=== PATIENT | male | born 1975 | race Caucasian/White ===

== ENCOUNTER 2020-04-14 21:04 | Emergency (ER) | payer BC ==
[~2020-04-14] VITALS: Ht 177.8 cm; Wt 79.4 kg
[2020-04-14 21:41] LABS: BASO % 0.7 % (0.0-1.0); EOS # 0.1 10*3/uL (0.0-0.4); EOS % 2.2 % (1.0-4.0); HEMATOCRIT 45.4 % (42.0-52.0); LYMPH # 1.5 10*3/uL (1.3-4.4); LYMPH % 26.5 % (27.0-41.0); MEAN CELL VOLUME 95.4 fl (80.0-94.0); MEAN CORPUSCULAR HGB 32.4 pg (27.0-31.0); MEAN CORPUSCULAR HGB CONC 33.9 g/dl (33.0-37.0); MEAN PLATELET VOLUME 10.2 fl (9.6-12.3); MONO # 0.6 10*3/uL (0.1-1.0); NEUT # 3.5 10*3/uL (2.3-7.9); NEUT % 60.3 % (47.0-73.0); PLATELET COUNT AUTOMATED 155 10*3/uL (130-400); RED BLOOD COUNT 4.76 10*6/uL (4.50-5.90); RED CELL DISTRI WIDTH 12.2 % (0-14.5); WHITE BLOOD COUNT 5.8 10*3/uL (4.8-10.8)
[2020-04-14 22:21] LABS: ALBUMIN 3.9 gm/dl (3.1-4.5); ALKALINE PHOSPHATASE 64 U/L (45-117); BUN 10 mg/dl (7-24); CHLORIDE 113 mmol/L (98-107); CREATININE 1.17 mg/dL (0.70-1.30); POTASSIUM 3.6 mmol/L (3.5-5.1); SGOT/AST 31 IU/L (3-35); SGPT/ALT 27 U/L (12-78); SODIUM 142 mmol/L (136-145); TOTAL PROTEIN 7.1 gm/dL (6.4-8.2)
[2020-04-14 22:23] LABS: ETHYL ALCOHOL < 3.0 mg/dl (<3)
== END 2020-04-15 01:05 | disposition home or self-care (01) ==
LOC: ED 21:04
PROVIDERS: Nurse Practitioner Family
DX: S09.90XA Unspecified injury of head, initial encounter (principal); R46.89 Other symptoms and signs involving appearance and behavior; X58.XXXA Exposure to other specified factors, initial encounter; Y93.89 Activity, other specified; Y92.89 Other specified places as the place of occurrence of the external cause; Y99.8 Other external cause status

== ENCOUNTER 2020-04-17 15:42 | Emergency (ER) | payer BC ==
[~2020-04-17] VITALS: Wt 120.2 kg
== END 2020-04-17 18:46 | disposition home or self-care (01) ==
LOC: ED 15:42
DX: R55 Syncope and collapse (principal)

== ENCOUNTER 2020-04-18 13:51 | Inpatient (IN) | payer BC ==
[~2020-04-18] VITALS: Ht 180.3 cm; Wt 87.6 kg
[2020-04-18 13:58] VITALS: BP 147/95
--- NOTE | 2020-04-18 14:24 | NUR ---
PT BROTHER IN LAW VIVIAN PHONE FOR ANY QUESTIONS
[2020-04-18 14:29] LABS: BASO % 0.4 % (0.0-1.0); EOS % 0.3 % (1.0-4.0); LYMPH # 1.2 10*3/uL (1.3-4.4); LYMPH % 11.7 % (27.0-41.0); MEAN CELL VOLUME 94.7 fl (80.0-94.0); MEAN CORPUSCULAR HGB 32.2 pg (27.0-31.0); MEAN PLATELET VOLUME 10.7 fl (9.6-12.3); MONO % 9.5 % (3.0-9.0); NEUT # 8.3 10*3/uL (2.3-7.9); NEUT % 77.8 % (47.0-73.0); PLATELET COUNT AUTOMATED 162 10*3/uL (130-400); RED BLOOD COUNT 4.54 10*6/uL (4.50-5.90); RED CELL DISTRI WIDTH 12.6 % (0-14.5); WHITE BLOOD COUNT 10.6 10*3/uL (4.8-10.8)
[2020-04-18 14:39] LABS: ACT PARTIAL THROMBO TIME 26.6 SECONDS (20.0-32.1)
[2020-04-18 14:47] LABS: ALKALINE PHOSPHATASE 58 U/L (45-117); BUN 31 mg/dl (7-24); CHLORIDE 108 mmol/L (98-107); CREATININE 2.33 mg/dL (0.70-1.30); POTASSIUM 4.3 mmol/L (3.5-5.1); SGOT/AST 499 IU/L (3-35); SGPT/ALT 165 U/L (12-78); SODIUM 137 mmol/L (136-145)
[2020-04-18 14:52] LABS: BILIRUBIN Negative (Negative); BLOOD 3+ (Negative); CLARITY Cloudy (Clear); COLOR Yellow (Yellow); GLUCOSE Negative (Negative); KETONE Negative (Negative); LEUKO ESTERASE Negative (Negative); NITRITE Negative (Negative); PH 5.5 (4.5-8.0); SPECIFIC GRAVITY 1.015 (1.001-1.030)
[2020-04-18 14:55] LABS: THYROID STIM HORMONE (HS) 0.547 uIU/ml (0.358-4.75)
[2020-04-18 15:00] LABS: ETHYL ALCOHOL < 3.0 mg/dl (<3)
[2020-04-18 15:08] LABS: URINE AMPHETAMINES < 1000 (1000ng/ml); URINE BARBITURATES < 200 (200ng/ml); URINE BENZODIAZEPINES < 200 (200ng/ml); URINE CANNABINOIDS (THC) < 50 (50ng/ml); URINE COCAINE < 300 (300ng/ml); URINE METHADONE < 300 (300ng/ml); URINE OPIATES < 300 (300ng/ml)
[2020-04-18 15:10] LABS: BACTERIA 1+; RBC 16-20 rbc/hpf (0-2); WBC 31-40 wbc/hpf (0-5)
[2020-04-18 15:12] LABS: URINE PHENCYCLIDINE < 25 (25ng/ml)
[2020-04-18 16:35] LABS: ACETAMINOPHEN (TYLENOL) < 5.0 ug/ml (10-30); CPK 26853 U/L (39-308)
[2020-04-18 16:36] VITALS: BP 142/96
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
[2020-04-18 17:30] VITALS: BP 130/89
--- NOTE | 2020-04-18 17:30 | NUR ---
Time: 1729 A 44 year old MALE admitted to 5E under services of MIRI JONES DO. Pt. arrived via bed from ER. Chief complaint: LA,MEMORY LOSS AND VISUAL DISTURBANCES YULISA GALVIN
--- NOTE | 2020-04-18 17:49 | NUR ---
ATTEMPTED TO MEASURE WOUNDS TO KNEES FACE PT REFUSES PHOTOS,MEASUREMENTS AND TX AT THIS TIME.
--- NOTE | 2020-04-18 18:25 | NUR ---
U NOTIFIED OF NEW CONSULT FOR DECISION CAPACITY,RECENT LOSS.
--- NOTE | 2020-04-18 18:26 | NUR ---
DR B[place]HAM NOTIFIED OF NEW CONSULT FOR RHABDO AND LA.
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
--- NOTE | 2020-04-18 19:01 | NUR ---
RENOTIFIED U OF NEW CONSULT FOR BEHAVIORAL CHANGES PER BROTHER IN LAW.R/O DEPRESSION.
--- NOTE | 2020-04-18 19:30 | NUR ---
TOOK OVER CARE OF PT. PT SITTING UP IN BED. ALERT AND PLEASANT WITH STAFF. ASSESSMENT COMPLETE. NO COMPLAINTS VOICED BY PT. CALL LIGHT IN REACH.
[2020-04-18 20:00] VITALS: BP 121/78
[2020-04-19] VITALS: BP 107/71
--- NOTE | 2020-04-19 00:37 | NUR ---
PT GIVEN 2MG MORPHINE VIA IVP FOR C/O BODY WIDE PAIN. PT STATES THAT PAIN IS 8/10. WILL MONITOR FOR EFFECTIVENESS. CALL LIGHT IN REACH.
[2020-04-19 06:50] LABS: BASO # 0.1 10*3/uL (0.0-0.1); BASO % 0.6 % (0.0-1.0); EOS # 0.2 10*3/uL (0.0-0.4); EOS % 2.1 % (1.0-4.0); HEMATOCRIT 43.9 % (42.0-52.0); LYMPH # 1.9 10*3/uL (1.3-4.4); LYMPH % 23.8 % (27.0-41.0); MEAN CELL VOLUME 96.9 fl (80.0-94.0); MEAN CORPUSCULAR HGB 31.6 pg (27.0-31.0); MEAN CORPUSCULAR HGB CONC 32.6 g/dl (33.0-37.0); MEAN PLATELET VOLUME 11.1 fl (9.6-12.3); MONO # 0.9 10*3/uL (0.1-1.0); MONO % 11.4 % (3.0-9.0); NEUT % 61.9 % (47.0-73.0); PLATELET COUNT AUTOMATED 161 10*3/uL (130-400); RED BLOOD COUNT 4.53 10*6/uL (4.50-5.90); RED CELL DISTRI WIDTH 12.6 % (0-14.5)
[2020-04-19 07:11] LABS: ALBUMIN 3.3 gm/dl (3.1-4.5); BUN 22 mg/dl (7-24); CHLORIDE 111 mmol/L (98-107); CHOLESTEROL 135 mg/dL (<200); CREATININE 1.12 mg/dL (0.70-1.30); HDL CHOLESTEROL 30 mg/dl (40-60); LDL CHOLESTEROL 78 mg/dL (9-159); POTASSIUM 4.1 mmol/L (3.5-5.1); SGPT/ALT 148 U/L (12-78); SODIUM 142 mmol/L (136-145); TRIGLYCERIDES 134 mg/dl (<150); VLDL CHOLESTEROL 27 mg/dL (6-40)
[2020-04-19 07:18] LABS: ALKALINE PHOSPHATASE 49 U/L (45-117); FREE T4 0.88 ng/dl (0.76-1.46); SGOT/AST 347 IU/L (3-35); TOTAL PROTEIN 6.2 gm/dL (6.4-8.2)
[2020-04-19 08:00] VITALS: BP 112/77
[2020-04-19 08:19] LABS: VITAMIN D, 25-HYDROXY 51.8 ng/mL (30-100)
[2020-04-19 12:00] VITALS: BP 118/79
--- NOTE | 2020-04-19 15:30 | NUR ---
REPORT RECEIVED, ASSUMED CARE OF PATIENT.
[2020-04-19 16:00] VITALS: BP 127/77
--- NOTE | 2020-04-19 17:51 | NUR ---
PATIENT C/O LEG AND NECK PAIN MEDICATED WITH MORPHINE ORDERED PRN, WHITE BOARD UPDATED.
--- NOTE | 2020-04-19 18:50 | NUR ---
PATIENT REPORTS GOOD RELIEF FROM T8YODIBA GIVEN X 1 HOUR AGO. RATES PAIN 2/10
[2020-04-19 20:00] VITALS: BP 121/73
--- NOTE | 2020-04-19 20:00 | NUR ---
Neurological: awake,alert,oriented Respiratory: easy, regular,no distress Breath sounds: clear Cough: none Cardiovascular: no problem Gastrointestinal: soft Genito/Urinary: no problem Musculoskeketal: AMBULATORY BRIAN WALKER
[2020-04-20] VITALS: BP 124/78
[2020-04-20 06:46] LABS: BUN 13 mg/dl (7-24); CHLORIDE 111 mmol/L (98-107); POTASSIUM 4.1 mmol/L (3.5-5.1); SGOT/AST 203 IU/L (3-35); SGPT/ALT 128 U/L (12-78); SODIUM 140 mmol/L (136-145); TOTAL PROTEIN 6.1 gm/dL (6.4-8.2)
[2020-04-20 07:00] LABS: ALBUMIN 3.1 gm/dl (3.1-4.5); ALKALINE PHOSPHATASE 47 U/L (45-117); CREATININE 0.77 mg/dL (0.70-1.30)
--- NOTE | 2020-04-20 07:00 | NUR ---
ARRIVED ON SHIFT, REPORT RECEIVED FROM OFFGOING NURSE, ASSUMED CARE OF PATIENT.
[2020-04-20 07:02] LABS: CPK 4973 U/L (39-308)
--- NOTE | 2020-04-20 07:50 | NUR ---
INTRODUCED SELF TO PATIENT, BED LOW POSITION, SIDE RAILS UP X 2 FOR TURNING AND REPOSITIONING, CALL LIGHT WITHIN REACH, N0 NEEDS VOICED AT THIS TIME. WHITE BOARD UPDATED.
[2020-04-20 08:00] VITALS: BP 118/78
--- NOTE | 2020-04-20 11:15 | NUR ---
PHYSICAL THERAPY Physical Therapy evaluation completed on 5th floor with full evaluation to follow. Recommend physical therapy per plan of care and home upon discharge. Thank you for this referral. Akshat Mcelroy SPT Marisol Guzman PT
--- NOTE | 2020-04-20 11:15 | NUR ---
Occupational Therapy evaluation completed on 5 with full eval to follow. Precautions include slower processing for following directions, impulsive behavior at times, low complexity level 18429. Recommend no further OT and return home upon d/c. Thank you. Karen Saavedra OTr/L
[2020-04-20 12:00] VITALS: BP 128/87
--- NOTE | 2020-04-20 12:23 | NUR ---
CALL PLACED TO CIRO TERRY, ADVISED OF CONSULT.
--- NOTE | 2020-04-20 13:11 | NUR ---
Biological Photographer in to talk to patient. Patient states lives at HOME with FRIEND. There are NO steps in the home. Physician: NONE Pharmacy: [facility] Home health services: NONE Patient's level of ADLs: INDEPENDENT Patient has working utilities: YES DME: NONE Follow-up physician's appointment after d/c: STATES HE DOES NOT HAVE PCP Does patient want to access PORTAL?: NO Discharge plan PT STATES HE LIVES WITH A FRIEND BUT DECLINES TO GIVE NAME. DENIES HE WILL HAVE ANY NEEDS ON DISCHARGE. WILL CONTINUE TO FOLLOW. STATES HE WILL HAVE A RIDE HOME. . RODGER TINEO
[2020-04-20 16:00] VITALS: BP 118/67
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
[2020-04-20 20:00] VITALS: BP 127/87
--- NOTE | 2020-04-20 20:31 | NUR ---
PT REQUESTING SOMETHING FOR INSOMNIA. PO RESTORIL GIVEN PER PRN ORDER. WILL MONITOR. CALL LIGHT IN REACH.
--- NOTE | 2020-04-20 21:30 | NUR ---
EARLIER MEDICATION APPEARS EFFECTIVE. PT ASLEEP IN BED. NO S/S OF DISTRESS NOTED. WILL MONITOR. CALL LIGHT IN REACH.
--- NOTE | 2020-04-20 22:40 | NUR ---
PATIENT DESIGNATED PASSCODE OF CC. PATIENT'S SISTER OSKAR CALLED IN WITH PASSCODE. UPDATED ON PLAN OF CARE. STATES TO CALL HER AT [phone] IF PT WOULD TRY TO LEAVE AMA. STATES LAST TIME HE LEFT AMA HE WAS WALKING ON THE ROAD WITH ONLY HOSPITAL SOCKS ON.
[2020-04-21] VITALS: BP 110/79
--- NOTE | 2020-04-21 02:15 | NUR ---
PT ASLEEP IN BED. NO S/S OF DISTRESS NOTED. WILL MONITOR. CALL LIGHT IN REACH.
--- NOTE | 2020-04-21 04:05 | NUR ---
PT ASLEEP IN BED. NO S/S OF DISTRESS NOTED. WILL MONITOR. CALL LIGHT IN REACH.
--- NOTE | 2020-04-21 07:00 | NUR ---
ARRIVED ON SHIFT, REPORT RECEIVED FROM OFFGOING NURSE, ASSUMED CARE OF PATIENT.
[2020-04-21 08:00] VITALS: BP 111/65
[2020-04-21 08:12] LABS: BUN 13 mg/dl (7-24); CHLORIDE 111 mmol/L (98-107); CREATININE 0.78 mg/dL (0.70-1.30); POTASSIUM 4.1 mmol/L (3.5-5.1); SODIUM 137 mmol/L (136-145)
[2020-04-21 08:35] LABS: CPK 2396 U/L (39-308)
--- NOTE | 2020-04-21 11:49 | NUR ---
PT STATES HE PLANS TO RETURN HOME WHEN MEDICALLY STABLE AND WILL HAVE NO NEW NEEDS. WILL CONTINUE TO FOLLOW.
[2020-04-21 12:00] VITALS: BP 143/89
[2020-04-21] MEDS ORDERED: MIRTAZAPINE15 M2 PO ×2 (14:29→15:16)
--- NOTE | 2020-04-21 15:30 | NUR ---
Discharge instructions reviewed with patient/family. Patient receptive and verbalizes understanding. Follow-up care arranged. Written instructions given to patient/family,IV REMOVED TAKEN OUT VIA W/C BY HOSPITAL PA. OSMAN WOLFE
== END 2020-04-21 15:30 | disposition home or self-care (01) | DRG 557 ==
LOC: ED 13:51 → EDHOLD 16:06 → 5E 16:06
PROVIDERS: Emergency Medicine; Social Worker Clinical; Student in an Organized Health Care Education/Training Program; ADMIT Student in an Organized Health Care Education/Training Program; ATTEND Student in an Organized Health Care Education/Training Program
DX: M62.82 Rhabdomyolysis (principal); N17.0 Acute kidney failure with tubular necrosis; N39.0 Urinary tract infection, site not specified; F32.2 Major depressive disorder, single episode, severe without psychotic features; R74.01 Elevation of levels of liver transaminase levels; E83.41 Hypermagnesemia; F17.210 Nicotine dependence, cigarettes, uncomplicated; G47.00 Insomnia, unspecified; R26.9 Unspecified abnormalities of gait and mobility; D72.9 Disorder of white blood cells, unspecified; D72.810 Lymphocytopenia; R31.9 Hematuria, unspecified; F43.23 Adjustment disorder with mixed anxiety and depressed mood; E87.8 Other disorders of electrolyte and fluid balance, not elsewhere classified; R73.9 Hyperglycemia, unspecified; M54.2 Cervicalgia; D75.89 Other specified diseases of blood and blood-forming organs; W11.XXXD Fall on and from ladder, subsequent encounter; Z82.49 Family history of ischemic heart disease and other diseases of the circulatory system; Z80.0 Family history of malignant neoplasm of digestive organs; Z84.89 Family history of other specified conditions; S06.0X0D Concussion without loss of consciousness, subsequent encounter